=== PATIENT | female | born 1965 | race American Indian/Alaskan Native ===

== ENCOUNTER 2016-10-27 09:37 | Outpatient (CLI) | payer OTHER ==
--- NOTE | 2016-10-27 14:59 | Mammography Report ---
LEFT DIGITAL DIAGNOSTIC MAMMOGRAM : 10/27/16 09:37:00 CLINICAL: Recalled for asymmetry. COMPARISON:09/22/16 screening FINDINGS: ML and spot compression MLO views were performed. Satisfactory effacement of the previously described asymmetry on the spot view. The lateral view is negative. IMPRESSION: Negative Mammogram. BI-RADS CATEGORY: 1 -- Negative RECOMMENDATION: Routine mammographic screening in one year. ACR BI-RADS MAMMOGRAPHIC CODES: 0 = Needs additional imaging evaluation; 1 = Negative; 2 = Benign; 3 = Probably benign; 4 = Suspicious; 5 = Malignant; 6 = Known biopsy-proven malignancy COMMENT: 1. Dense breast tissue, i.e., adenosis, fibrocystic changes, etc., may obscure an underlying neoplasm. 2. Approximately 10% of cancers are not detected with mammography. 3. A negative mammography report should not delay biopsy if a clinically suspicious mass is present. COMMENT: Patient follow-up letters are generated via our [employer] application.
== END 2016-10-27 09:38 | disposition home or self-care (01) ==
LOC: SPVWC 09:37
PROVIDERS: ATTEND Internal Medicine Hematology & Oncology
DX: R92.8 Other abnormal and inconclusive findings on diagnostic imaging of breast (principal)
CPT/HCPCS: G0206-LT

== ENCOUNTER 2017-03-25 07:07 | Outpatient (CLI) | payer OTHER ==
--- NOTE | 2017-03-26 09:46 | PET Report ---
PET SB TO MT INITIAL: HISTORY: Cancer of the cecum, restaging. TECHNIQUE: 14.6 millicuries F-18 FDG was administered intravenously. Noncontrast CT images and PET images were obtained from the skull base to the proximal thighs. Fused images were reviewed on a workstation. The patient's blood glucose level measured 137. COMPARISON: 05/07/16. FINDINGS: BRAIN: physiologic FDG uptake in the imaged brain. NECK: physiologic FDG uptake. MEDIASTINUM: physiologic FDG uptake. LUNGS: There is a new 1.6 cm soft tissue nodule in the lingula with Max SUV measuring 1.5. The remaining lungs are clear. PLEURA/PERICARDIUM: physiologic FDG uptake. THORACIC LYMPH NODES: physiologic FDG uptake. HEPATOBILIARY: physiologic FDG uptake. Mean liver SUV measures 4.6. PANCREAS: physiologic FDG uptake. SPLEEN: physiologic FDG uptake. ADRENAL GLANDS: physiologic FDG uptake. KIDNEYS/RENAL COLLECTING SYSTEMS: physiologic FDG uptake. BOWEL/MESENTERY: Surgical suture line in the right lower quadrant/proximal colon is again noted. 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 No bowel obstruction. There is however a new heterogeneous lobular mass in the right side of the pelvis measuring up to 17.2 x 6.6 cm in axial dimensions. This mass appears to invade the right iliopsoas muscle and extends to the skin surface in the right lower quadrant and the bladder dome. Max SUV measures 10.5. ABDOMINAL/PELVIC LYMPH NODES: physiologic FDG uptake. MUSCULOSKELETAL: physiologic FDG uptake. IMPRESSION: A large heterogeneous and hypermetabolic mass has developed in the right side of the pelvis consistent with recurrent cecal cancer. There is also a new 1.6 cm nodule in the lingula which is hypometabolic but highly suspicious.
== END 2017-03-25 07:08 | disposition home or self-care (01) ==
LOC: PET 07:07
PROVIDERS: ATTEND Internal Medicine Hematology & Oncology
DX: C18.0 Malignant neoplasm of cecum (principal); G89.3 Neoplasm related pain (acute) (chronic); Z79.899 Other long term (current) drug therapy
CPT/HCPCS: 78815; 82962; A9552

== ENCOUNTER 2017-03-31 13:14 | Outpatient (CLI) | payer OTHER ==
[2017-03-31] MEDS ORDERED: XYLOCAINE TOPICAL 4% TP ONE ×2 (14:20→17:00)
== END 2017-03-31 13:15 | disposition home or self-care (01) ==
LOC: WOUND 13:14
PROVIDERS: ATTEND Surgery
DX: S31.603A Unspecified open wound of abdominal wall, right lower quadrant with penetration into peritoneal cavity, initial encounter (principal); F41.9 Anxiety disorder, unspecified; Z85.038 Personal history of other malignant neoplasm of large intestine; X58.XXXA Exposure to other specified factors, initial encounter; Y93.89 Activity, other specified; Y92.89 Other specified places as the place of occurrence of the external cause; Y99.8 Other external cause status
CPT/HCPCS: 99215; G0463